=== PATIENT | female | born 2005 | race Caucasian/White ===

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

== ENCOUNTER 2023-03-12 12:06 | Emergency (ER) | payer BC ==
[~2023-03-12] VITALS: Ht 160 cm; Wt 56.3 kg
[2023-03-12] MEDS ORDERED: AZO1CAP PO (12:11)
[2023-03-12 12:42] LABS: URINE PREG TEST NEGATIVE (NEGATIVE)
[2023-03-12] MEDS ORDERED: NS 1,000 ML IV ONE (13:15)
[2023-03-12 13:46] LABS: CK-MB VALUE MASS < 1.0 NG/ML (<3.6); LIPASE 28 U/L (12-53)
[2023-03-12 13:47] LABS: CPK CREATINE PHOSPHOKINASE 36 U/L (34-145); MB/CK RELATIVE INDEX 2.77 (< OR =4)
[2023-03-12 13:48] LABS: ALBUMIN 4.2 G/DL (3.2-5.2); ALKALINE PHOSPHATASE 59 U/L (46-116); ALT/SGPT 11 U/L (7.0-40); AST/SGOT 13 U/L (<34); BILIRUBIN,DIRECT 0.4 MG/DL (<0.4); BILIRUBIN,TOTAL 1.1 MG/DL (0.3-1.2); TOTAL PROTEIN 7.2 G/DL (5.7-8.2)
[2023-03-12 13:49] LABS: BASO % 0.6 % (0.0-1.0); EOS # 0.1 10^3/uL (0.0-0.5); EOS % 1.1 % (0.0-3.0); HEMATOCRIT 38.4 % (36.0-47.0); HEMOGLOBIN 12.8 g/dl (12.0-15.5); LYMPH # 0.8 10^3/uL (1.5-5.0); LYMPH % 10.7 % (24.0-44.0); MEAN CORPUSCULAR HEMOGLOBIN 30.5 pg (27.0-33.0); MEAN CORPUSCULAR HGB CONC 33.3 g/dl (32.0-36.5); MEAN CORPUSCULAR VOLUME 91.6 fl (80.0-96.0); MONO # 0.9 10^3/uL (0.0-0.8); MONO % 12.1 % (2.0-8.0); NEUTROPHILS # 5.3 10^3/uL (1.5-8.5); NEUTROPHILS % 75.2 % (36.0-66.0); PLATELET COUNT, AUTOMATED 142 10^3/uL (150-450); RED BLOOD COUNT 4.19 10^6/uL (4.00-5.40)
[2023-03-12 15:00] VITALS: BP 106/53
[2023-03-12 15:21] LABS: RSV AMPLIFICATION NEGATIVE (NEGATIVE)
[2023-03-12] MEDS ORDERED: HYDR-3363 PO (16:24)
[2023-03-12 16:30] VITALS: O2SAT 98
[2023-03-12 16:45] VITALS: TEMP 96.9
[2023-03-15] MEDS ORDERED: CIPR-249 PO (16:55)
== END 2023-03-12 17:06 | disposition home or self-care (01) ==
LOC: M ED 12:06
DX: U07.1 COVID-19 (principal); F41.9 Anxiety disorder, unspecified; N93.9 Abnormal uterine and vaginal bleeding, unspecified; R00.1 Bradycardia, unspecified; Z79.899 Other long term (current) drug therapy

== ENCOUNTER → 2023-03-13 | Outpatient (REF) | payer BC ==
[~2023-03-13] MED LIST: AZO1CAP PO; CIPR-249 PO; HYDR-3363 PO
[2023-03-13 14:18] LABS: APPEARANCE, URINE HAZY (CLEAR); BACTERIA, URINE AUTO NEGATIVE (NEGATIVE); BILIRUBIN, URINE AUTO NEGATIVE (NEGATIVE); BLOOD, URINE BLOOD 3+ (NEGATIVE); COLOR, URINE YELLOW (YELLOW); GLUCOSE, URINE (UA) AUTO NEGATIVE (NEGATIVE); KETONE, URINE AUTO NEGATIVE (NEGATIVE); LEUKOCYTE ESTERASE, URINE AUTO 1+ (NEGATIVE); MUCUS, URINE SMALL (NEGATIVE); NITRITE, URINE AUTO NEGATIVE (NEGATIVE); PROTEIN, URINE AUTO 1+ mg/dL (NEGATIVE); RBC, URINE AUTO TNTC /HPF (0-3); SPECIFIC GRAVITY URINE AUTO 1.021 (1.002-1.035); SQUAMOUS EPITHELIAL CELL UR AU 2 /HPF (0-6); UROBILINOGEN, URINE AUTO 0.2 mg/dL (0.0-2.0); WBC, URINE AUTO 12 /HPF (0-3)
== END ==
LOC: M LAB REF 12:41
PROVIDERS: ATTEND Physician Assistant
DX: R30.0 Dysuria (principal)

== ENCOUNTER → 2023-03-31 | Outpatient (REF) | payer BC | LOC: M LAB REF 17:44 | PROVIDERS: ATTEND Physician Assistant | DX: R30.0 Dysuria (principal) ==

== ENCOUNTER → 2023-04-04 | Outpatient (CLI) | payer BC ==
[2023-04-04 16:39] LABS: FREE T4 0.98 NG/DL (0.83-1.43)
[2023-04-04 16:46] LABS: THYROID STIMULATING HORMONE 1.489 uIU/ML (0.48-4.17)
== END ==
LOC: M PLALAB 13:07
PROVIDERS: ATTEND Pediatrics Pediatric Endocrinology
DX: E04.1 Nontoxic single thyroid nodule (principal)

== ENCOUNTER 2023-04-26 13:49 | Emergency (ER) | payer BC ==
[~2023-04-26] VITALS: Ht 160 cm; Wt 58.2 kg
[2023-04-26] MEDS ORDERED: LEXA1TAB PO (13:55)
[2023-04-26 15:27] LABS: BASO # 0.1 10^3/uL (0.0-0.2); BASO % 0.6 % (0.0-1.0); EOS # 0.1 10^3/uL (0.0-0.5); EOS % 0.6 % (0.0-3.0); HEMATOCRIT 38.2 % (36.0-47.0); LYMPH # 1.4 10^3/uL (1.5-5.0); LYMPH % 15.9 % (24.0-44.0); MEAN CORPUSCULAR HEMOGLOBIN 30.3 pg (27.0-33.0); MONO # 0.6 10^3/uL (0.0-0.8); MONO % 6.9 % (2.0-8.0); NEUTROPHILS # 6.9 10^3/uL (1.5-8.5); NEUTROPHILS % 75.8 % (36.0-66.0); PLATELET COUNT, AUTOMATED 172 10^3/uL (150-450); RED BLOOD COUNT 4.29 10^6/uL (4.00-5.40); WHITE BLOOD COUNT 9.1 10^3/uL (4.0-10.0)
[2023-04-26 15:51] LABS: C REACTIVE PROTEIN QUANTITATIV < 0.40 MG/DL (<1.0); LIPASE 29 U/L (12-53)
[2023-04-26 15:53] LABS: ALBUMIN 4.3 G/DL (3.2-5.2); ALKALINE PHOSPHATASE 63 U/L (46-116); ALT/SGPT 14 U/L (7.0-40); AST/SGOT 15 U/L (<34); BILIRUBIN,DIRECT 0.3 MG/DL (<0.4); BILIRUBIN,TOTAL 0.8 MG/DL (0.3-1.2); BLOOD UREA NITROGEN 13 MG/DL (9-23); CALCIUM LEVEL 9.1 MG/DL (8.5-10.1); CARBON DIOXIDE LEVEL 28 MMOL/L (20-31); CHLORIDE LEVEL 106 MMOL/L (98-107); CREATININE FOR GFR 0.63 MG/DL (0.55-1.30); GLUCOSE, FASTING 81 MG/DL (60-100); POTASSIUM SERUM 4.2 MMOL/L (3.5-5.1); SODIUM LEVEL 139 MMOL/L (136-145); TOTAL PROTEIN 7.6 G/DL (5.7-8.2)
[2023-04-26 15:58] LABS: HCG, SERUM QUALITATIVE NEGATIVE (NEGATIVE)
[2023-04-26 16:15] LABS: ERYTHROCYTE SEDIMENTATION RATE 6 mm/hr (0-20)
[2023-04-26 16:56] VITALS: BP 115/56; TEMP 99.2; O2SAT 100
[2023-04-26] MEDS ORDERED: ISOVUE-370 76% 100ML VIAL As Ordered ONE (17:06)
[2023-04-26] MEDS ORDERED: ONDA4TAB6 PO (19:09)
== END 2023-04-26 19:23 | disposition home or self-care (01) ==
LOC: M ED 13:49
DX: K52.9 Noninfective gastroenteritis and colitis, unspecified (principal); Z79.83 Long term (current) use of bisphosphonates; Z79.899 Other long term (current) drug therapy
CPT/HCPCS: 36415; 74177; 80048; 80076; 81001; 83690; 84703; 85025; 85652; 86140; 87086; 87507; 99284; Q9967

== ENCOUNTER → 2023-10-02 | Outpatient (CLI) | payer BC ==
[~2023-10-02] MED LIST changes: +LEXA1TAB PO; +ONDA-282 PO
== END ==
LOC: M RAD 12:37
PROVIDERS: ATTEND Nurse Practitioner Family
DX: N83.201 Unspecified ovarian cyst, right side (principal)

== ENCOUNTER → 2023-11-18 | Outpatient (REF) | payer BC | LOC: M SFHCDERM 12:54 | PROVIDERS: ATTEND Physician Assistant | DX: Z79.899 Other long term (current) drug therapy (principal); Z53.9 Procedure and treatment not carried out, unspecified reason ==

== ENCOUNTER → 2024-10-02 | Outpatient (CLI) | payer BC | LOC: M RAD 14:35 | PROVIDERS: ATTEND Nurse Practitioner Family | DX: R10.2 Pelvic and perineal pain (principal); N83.291 Other ovarian cyst, right side ==

== ENCOUNTER → 2025-01-26 | Outpatient (REF) | payer BC ==
[2025-01-26 19:58] LABS: Trichomonas vaginalis (AMP) NOT DETECTED (NEGATIVE)
[2025-01-26 20:21] LABS: GC DNA AMPLIFICATION NEGATIVE (NEGATIVE)
== END ==
LOC: M LAB REF 17:06
PROVIDERS: ATTEND Physician Assistant
DX: R30.0 Dysuria (principal)